=== PATIENT | female | born 2000 | race American Indian/Alaskan Native ===

== ENCOUNTER 2021-10-18 07:34 | Emergency (ER) | payer SELFPAY ==
--- NOTE | 2021-10-18 11:10 | Emergency Department Report ---
ED ENT HPI - General Chief complaint: Sore Throat Stated complaint: SORE THROAT/RUNNY NOSE Time Seen by Provider: 10/18/21 09:56 Source: patient Mode of arrival: Ambulatory Limitations: No Limitations - History of Present Illness Initial comments: 21-year-old black female with past medical history of asthma presents emergency department for evaluation of 2-day history of sore throat, runny nose, sneezing, and cough. She denies fever, shortness of breath, nausea, vomiting, and headache. She states that sore throat is 2 out of 10. MD complaint: sore throat -: Gradual, days(s) (2) Location: throat Severity: mild Severity scale (0 -10): 2 Quality: burning, aching Consistency: constant Associated Symptoms: cough, pain with swallowing, sore throat, rhinorrhea. denies: fever, gum swelling, toothache, tinnitus, hearing loss, discharge from ear - Related Data Previous Rx's Medication Instructions Recorded Last Taken Type Levocetirizine Dihydrochloride 5 mg PO QPM #30 tab 10/18/21 Unknown Rx [Xyzal] guaiFENesin/CODEINE [Robitussin AC] 10 ml PO TID PRN #120 ml 10/18/21 Unknown Rx predniSONE [Deltasone] 50 mg PO QDAY 5 Days #5 tab 10/18/21 Unknown Rx Allergies Allergy/AdvReac Type Severity Reaction Status Date / Time No Known Allergies Allergy Verified 10/18/21 07:41 ED Dental HPI - General Chief complaint: Sore Throat Stated complaint: SORE THROAT/RUNNY NOSE Time Seen by Provider: 10/18/21 09:56 Source: patient Mode of arrival: Ambulatory Limitations: No Limitations - Related Data Previous Rx's Medication Instructions Recorded Last Taken Type Levocetirizine Dihydrochloride 5 mg PO QPM #30 tab 10/18/21 Unknown Rx [Xyzal] guaiFENesin/CODEINE [Robitussin AC] 10 ml PO TID PRN #120 ml 10/18/21 Unknown Rx predniSONE [Deltasone] 50 mg PO QDAY 5 Days #5 tab 10/18/21 Unknown Rx Allergies Allergy/AdvReac Type Severity Reaction Status Date / Time No Known Allergies Allergy Verified 10/18/21 07:41 ED Review of Systems ROS: Stated complaint: SORE THROAT/RUNNY NOSE Other details as noted in HPI Comment: All other systems reviewed and negative Constitutional: denies: chills, fever Eyes: denies: eye discharge, vision change ENT: congestion Respiratory: cough. denies: shortness of breath, SOB with exertion, SOB at rest, stridor, wheezing Cardiovascular: denies: chest pain, palpitations, dyspnea on exertion, orthopnea, edema, syncope, paroxysmal nocturnal dyspnea Gastrointestinal: denies: abdominal pain, nausea, vomiting Genitourinary: denies: urgency, dysuria Musculoskeletal: denies: back pain Skin: denies: lesions Neurological: denies: headache, weakness ED Past Medical Hx - Medications Home Medications: Home Medications Medication Instructions Recorded Confirmed Last Taken Type Levocetirizine Dihydrochloride 5 mg PO QPM #30 tab 10/18/21 Unknown Rx [Xyzal] guaiFENesin/CODEINE [Robitussin AC] 10 ml PO TID PRN #120 ml 10/18/21 Unknown Rx predniSONE [Deltasone] 50 mg PO QDAY 5 Days #5 tab 10/18/21 Unknown Rx ED Physical Exam - General Limitations: No Limitations General appearance: alert, in no apparent distress - Head Head exam: Present: atraumatic, normocephalic - Eye Eye exam: Present: normal appearance. Absent: conjunctival injection, periorbital swelling, periorbital tenderness - ENT ENT exam: Absent: normal exam (Bilateral nasal mucosal edema), normal orophraynx (Erythema noted to the posterior oropharynx) - Expanded ENT Exam Expanded Throat exam: Negative: tonsillar erythema, tonsillomegaly, tonsillar exudate, R peritonsillar mass, L peritonsillar mass - Neck Neck exam: Present: normal inspection. Absent: tenderness, lymphadenopathy - Respiratory Respiratory exam: Present: normal lung sounds bilaterally. Absent: respiratory distress, wheezes, rales, rhonchi, stridor, chest wall tenderness - Cardiovascular Cardiovascular Exam: Present: regular rate, normal heart sounds - GI/Abdominal GI/Abdominal exam: Present: soft, normal bowel sounds. Absent: distended, tenderness, guarding, rebound, rigid - Extremities Exam Extremities exam: Present: normal inspection, full ROM, normal capillary refill. Absent: tenderness, pedal edema, joint swelling, calf tenderness - Back Exam Back exam: Present: normal inspection. Absent: CVA tenderness (R), CVA tenderness (L), vertebral tenderness - Neurological Exam Neurological exam: Present: alert, oriented X3, CN II-XII intact, normal gait - Psychiatric Psychiatric exam: Present: normal affect, normal mood - Skin Skin exam: Present: warm, dry, intact, normal color ED Course Vital Signs 10/18/21 07:38 Temperature 98.8 F Pulse Rate 87 Respiratory 16 Rate Blood Pressure 124/86 [Left] O2 Sat by Pulse 98 Oximetry ED Medical Decision Making - Medical Decision Making 21-year-old black female with past medical history of asthma presents emergency department for evaluation of 2-day history of sore throat, runny nose, sneezing, and cough. She denies fever, shortness of breath, nausea, vomiting, and headache. She states that sore throat is 2 out of 10. Physical exam consistent with URI with cough and congestion. Patient be discharged home with 5-day course of prednisone, Xyzal, and Bromfed to use as needed for cough. She is advised to follow-up with her primary care provider if no improvement or worsening symptoms and return to the emergency department as needed. She verbalizes understanding of and agreement with plan of care. Critical care attestation.: If time is entered above; I have spent that time in minutes in the direct care of this critically ill patient, excluding procedure time. ED Disposition Clinical Impression: URI with cough and congestion Disposition: 01 HOME / SELF CARE / HOMELESS Is pt being admited?: No Does the pt Need Aspirin: No Condition: Stable Instructions: Upper Respiratory Infection, Adult, [id number], Cough, Adult, [id number] Additional Instructions: Take medications as prescribed. Increase intake of noncaffeinated fluids. Follow-up with your primary care provider if no improvement or worsening symptoms. Return to the emergency department as needed. Prescriptions: predniSONE [Deltasone] 50 mg PO QDAY 5 Days #5 tab guaiFENesin/CODEINE [Robitussin AC] 10 ml PO TID PRN #120 ml PRN Reason: Cough Levocetirizine Dihydrochloride [Xyzal] 5 mg PO QPM #30 tab Referrals: AME PINK MD [Staff Physician] - 3-5 Days Forms: Work/School Release Form(ED) Time of Disposition: 11:12
[2021-10-18 12:06] VITALS: BP 118/64
== END 2021-10-18 12:21 | disposition home or self-care (01) ==
LOC: ED 07:34
DX: J06.9 Acute upper respiratory infection, unspecified (principal); Z79.899 Other long term (current) drug therapy
CPT/HCPCS: 99282